=== PATIENT | female | born 1935 | race Caucasian/White ===

== ENCOUNTER 2019-09-11 08:40 | Inpatient (IN) ==
[2019-09-11] MEDS ORDERED: MoRPHine SULFATE 4 MG/ML 1 ML CARP\\VIAL IV PRN (08:53)
[2019-09-11] MEDS ORDERED: MoRPHine SULFATE 2 MG/ML CARP IV PRN ×3 (08:53→15:40)
[2019-09-11] MEDS ORDERED: SODIUM CHLORIDE 0.9% 500 ML IV STA (08:56)
[2019-09-11] MEDS ORDERED: FLUTICASONE/VILANTEROL 200/25MCG 14 PUFFS/INHALER INH ONE (09:00)
[2019-09-11] MEDS ORDERED: ONDANSETRON INJ 2 MG/ML 2 ML VIAL IV STA (09:08)
[2019-09-11 09:12] LABS: Basophils # (auto) 0.07 K/uL (0-0.2); Basophils % (auto) 0.5 %; Eosinophils # (auto) 0.84 K/uL (0-0.5); Eosinophils % (auto) 6.2 %; Hemoglobin 11.5 g/dL (12.0-16.0); Immature Granulocytes # (auto) 0.04 K/uL (0.00-0.02); Immature Granulocytes % (auto) 0.3 %; Lymphocytes # (auto) 3.86 K/uL (1.2-3.4); Lymphocytes % (auto) 28.3 %; Mean Corpuscular Hemoglobin 29.9 pg (25-34); Mean Corpuscular Hgb Conc 32.9 g/dL (32-36); Mean Corpuscular Volume 90.9 fL (80-100); Mean Platelet Volume 10.8 fL (7.4-10.4); Monocytes # (auto) 1.08 K/uL (0.11-0.59); Monocytes % (auto) 7.9 %; Neutrophils # (auto) 7.76 K/uL (1.4-6.5); Neutrophils % (auto) 56.8 %; Platelet Count 213 K/uL (130-400); RDW Coefficient of Variation 14.2 % (11.5-14.5); RDW Standard Deviation 47.1 fL (36.4-46.3); Red Blood Count 3.85 M/uL (4.2-5.4); White Blood Count 13.65 K/uL (4.8-10.8)
[2019-09-11 09:20] LABS: Partial Thromboplastin Ratio 0.8; Partial Thromboplastin Time 22.2 Seconds (21.0-31.0); Prothrombin Time 10.2 Seconds (9.0-12.0)
[2019-09-11 09:25] LABS: Appearance Urine Clear (Clear); Bacteria Urine Automated Negative (Negative); Bilirubin Urine Negative (Negative); Blood Urine Negative (Negative); Color Urine Yellow; Epithelial Cell Urine Auto >30 /lpf (0-5); Glucose Urine UA Negative (Negative); Ketones Urine Negative (Negative); Leukocyte Esterase Urine Trace (Negative); Nitrite Urine Negative (Negative); Protein Urine 1+ (Negative); RBC Urine Automated 0-4 /hpf (0-4); Specific Gravity Urine 1.017 (1.000-1.030); Urobilinogen Urine Negative (Negative); pH Urine 5.5 (4.5-7.5)
[2019-09-11 09:31] LABS: BUN Creatinine Ratio 15.9 (10-20); Calcium 9.7 mg/dl (8.5-10.1); Creatinine Clr Calc Pharmacy 25.9 ml/min; Est GFR (African American) 39.5; Est GFR (Non-African American) 34.1; Magnesium 2.7 mg/dl (1.8-2.4); Phosphorus 3.6 mg/dl (2.5-4.9); Potassium 4.1 mmol/L (3.5-5.1)
[2019-09-11 09:36] LABS: Mucus Urine Present (None Prsent)
--- NOTE | 2019-09-11 10:38 | XRay Report ---
SINGLE VIEW PELVIS; 2 VIEWS RIGHT HIP; 2 VIEWS RIGHT FEMUR CLINICAL HISTORY: Fall with right hip pain. FINDINGS: An AP view of the pelvis, AP and crosstable lateral views the right hip, and AP and crossta ble lateral views of the right femur are obtained. No prior studies are available for comparison at t he time of dictation. The skeletal structures are osteopenic. There is a minimally distracted fractur e of the superior right pubic ring. There is also likely a nondistracted fracture of the right inferi or pubic ring. The superior pubic ring fracture approaches the right acetabulum. The remainder of the bony pelvis appears intact. The hips are maintained. There is no radiographic evidence of right femo ral fracture. Mild degenerative joint space narrowing is present in both hips. There is degenerative sclerosis of the sacroiliac joints and pubic symphysis. The right knee joint is grossly maintained no ting chondrocalcinosis of the medial and lateral compartments. Lumbosacral spondylosis is partially i tristen. The overlying soft tissues are normal as visualized. There is advanced atherosclerotic calcifi cation of the femoral arteries. Phlebolith are noted in the pelvis. IMPRESSION: 1. There is a minimally distracted fracture of the right superior pubic ring which approaches the grace tabulum. 2. Suspect a nondistracted fracture of the right inferior pubic ring. 3. The hips appear intact. 4. There is no radiographic evidence of right femoral fracture. Electronically signed by: Charles Norwood M.D. 09/11/2019 10:36 AM
--- NOTE | 2019-09-11 10:38 | XRay Report ---
XR lumbar spine 2-3V CLINICAL HISTORY: 84 years-old Female presenting with fall pain. TECHNIQUE: Frontal and crosstable lateral views of the lumbar spine were obtained. COMPARISON: Correlation made to CT of the abdomen and pelvis performed the same day. FINDINGS: Normal lumbar lordosis. No significant scoliosis. Vertebral bodies maintain normal height and alignme nt. Intervertebral disc height loss noted to a mild degree at several levels. Vacuum disc phenomenon is also suggested at every level. Multilevel mild to moderate spondylitic spurring. There is also pos terior spondylitic spurring suggested at several levels. Osseous neural foraminal narrowing may be pr esent at L4-5 and L5-S1. No compression deformity. Atherosclerotic calcifications. Cholecystectomy cl ips. Nonobstructive bowel gas pattern. Osteopenia may be present. IMPRESSION: 1. No radiographic evidence of acute osseous injury. 2. Multilevel degenerative changes. 3. Multilevel spinal canal and neural foraminal narrowing may be present. ACT 112: Negative or not required by law. Electronically signed by: Ronan Metz M.D. 09/11/2019 10:36 AM
--- NOTE | 2019-09-11 10:39 | XRay Report ---
XR chest 1V not portable CLINICAL HISTORY: 84 years-old Female presenting with fall. TECHNIQUE: Portable supine AP view of the chest was obtained. COMPARISON: None. FINDINGS: Cardiomediastinal silhouette normal. No focal opacity. No large effusion or pneumothorax. Degenerativ e changes of the thoracic spine. Osteopenia suspected. Elevation of the humeral head suggests chronic rotator cuff tears. Cholecystectomy clips noted. IMPRESSION: 1. No acute cardiopulmonary disease. 2. Suspected chronic rotator cuff tears bilaterally. ACT 112: Negative or not required by law. Electronically signed by: Ronan Metz M.D. 09/11/2019 10:37 AM
--- NOTE | 2019-09-11 10:55 | CT Scan Report ---
CT abd pelvis wo con CLINICAL HISTORY: 84 years-old Female presenting with fall, pelvic fx, back pain. TECHNIQUE: Multidetector CT of the abdomen and pelvis was performed without the use of intravenous co ntrast. IV contrast: None. One or more dose lowering techniques were used consistent with the princip les of ALA (as low as reasonably achievable), including automatic exposure control, mA or kV adjust ment to individual patient size, and/or use of iterative reconstruction. COMPARISON: None. CT DOSE (mGy.cm): The estimated cumulative dose is 406.38 mGycm. FINDINGS: Content Designer topogram: Cholecystectomy clips. Lung bases: Normal heart size. Coronary artery calcification. No pericardial or pleural effusion. Min imal dependent changes likely atelectasis. Liver: Normal morphology. Normal density. Biliary: No gross biliary ductal dilatation allowing for noncontrast technique. Gallbladder surgicall y absent. Pancreas: Mild parenchymal atrophy. Spleen: Normal noncontrast appearance. Adrenal glands: Normal noncontrast appearance. Kidneys and ureters: Punctate bilateral nephrolithiasis as well as renovascular calcification. Normal noncontrast of the kidneys otherwise. No hydronephrosis. Ureters nondistended. Bladder: Decompressed with Piper catheter. Pelvic organs: Uterus surgically absent. Bowel: Moderate stool burden in the rectum with a milder stool burden in the remainder of the colon. Diverticulosis of the proximal to mid sigmoid and distal descending colon without wall thickening or pericolonic inflammatory change. The appendix is normal. No bowel obstruction. Peritoneal cavity: No free fluid or intraperitoneal gas. Lymph nodes: No gross lymphadenopathy allowing for noncontrast technique. Vasculature: Atherosclerosis of the normal caliber abdominal aorta. Abdominal wall: Focal infiltration of the right lower quadrant intra-abdominal wall and to a lesser e xtent in the left lower quadrant. Musculoskeletal: Degenerative changes of the spine. Extensive endplate concavities noted at L2 and L5 . These appear to be on a degenerative basis and/or chronic. Possible nondisplaced fracture of the le ft anterior seventh rib degenerative changes of the hips. Acute segmental fracture of the right infer ior pubic ramus. Periacetabular fracture of the right superior pubic ramus. Femoral necks are intact. IMPRESSION: 1. Acute fractures of the right superior and inferior pubic rami. 2. Suspected nondisplaced acute fracture of the left anterior seventh rib. 3. Chronic deformities in the lumbar spine without convincing evidence of an acute fracture. 4. Lower quadrant anterior abdominal wall subcutaneous fat contusions. No focal hematoma. 5. No other evidence of acute intra-abdominal injury. 6. Additional incidental findings as above. ACT 112: Negative or not required by law. Electronically signed by: Ronan Metz M.D. 09/11/2019 10:53 AM
[2019-09-11] MEDS ORDERED: HYDROmorphone INJ 0.5 MG/0.5 ML SYR IV PRN ×2 (11:10)
--- NOTE | 2019-09-11 11:45 | Electrocardiogram Report ---
Test Reason : Blood Pressure : / mmHG Vent. Rate : 082 BPM Atrial Rate : 082 BPM P-R Int : 192 ms QRS Dur : 092 ms QT Int : 412 ms P-R-T Axes : 057 006 014 degrees QTc Int : 481 ms Sinus rhythm with frequent Premature ventricular complexes Otherwise normal ECG When compared with ECG of 20-NOV-2012 15:08, Premature ventricular complexes are now Present Vent. rate has increased BY 29 BPM Confirmed by Tarik Houston ([id number]) on 09/11/2019 11:44:58 AM Referred By: REFERRED SELF Confirmed By:Tarik Houston
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
[2019-09-11] MEDS ORDERED: CARBOHYDRATES FOR HYPOGLYCEMIA PO PRN (13:56)
[2019-09-11] MEDS ORDERED: ACETAMINOPHEN 325 MG TAB PO PRN ×2 (13:56→14:24)
[2019-09-11] MEDS ORDERED: ALBUTEROL HFA 8 GM INHALER INH PRN (13:56)
[2019-09-11] MEDS ORDERED: GLUCAGON FOR INJ 1 MG VIAL SQ PRN (13:56)
[2019-09-11] MEDS ORDERED: DEXTROSE 50% 50 ML SYRINGE IV PRN (13:56)
[2019-09-11] MEDS ORDERED: NON-FORMULARY MEDICATION (Magnesium Oxide 400 MG) PO SCH (13:56)
[2019-09-11] MEDS ORDERED: GLUCOSE 40% GEL 15 GM TUBE PO PRN (13:56)
[2019-09-11] MEDS ORDERED: ONDANSETRON INJ 2 MG/ML 2 ML VIAL IV PRN (13:56)
[2019-09-11] MEDS ORDERED: GLUCOSE 10 TABS/TUBE PO PRN (13:56)
[2019-09-11] MEDS ORDERED: POLYETHYLENE (MIRALAX) 17 GM PACK PO PRN (13:56)
[2019-09-11] MEDS ORDERED: SODIUM CHLORIDE 0.9% 1000ML 1,000 ML IV SCH (14:15)
[2019-09-11] MEDS: METOPROLOL SUCC 25MG EXT REL TAB PO SCH (14:26)
[2019-09-11] MEDS ORDERED: ACETAMINOPHEN 325 MG TAB PO SCH (14:30)
[2019-09-11] MEDS: GABAPENTIN 300 MG CAP PO SCH ×2 (15:08→21:13)
[2019-09-11] MEDS: SENNA 8.6 MG TAB PO SCH (15:09)
[2019-09-11] MEDS ORDERED: OXYCODONE HCL IR 5 MG TAB (IMMEDIATE RELEASE) PO PRN (15:39)
--- NOTE | 2019-09-11 15:53 | Orthopedic Consultation ---
Date of Consultation September 11, 2019 Assessment & Plan (1) Closed pelvic fracture: Plain x-rays and CT scan have been reviewed by myself and Dr. Sol. A portion of the superior pubic ramus fracture extends towards the acetabulum. No surgery will be needed for this at this time. She will need to remain toe-touch weightbearing on the right lower extremity. We discussed that she would need to be toe-touch weightbearing for at least 4 to 6 weeks and depending on repeat films, Dr. Sol may let her begin putting more weight on the right lower extremity at that time. Plan to follow-up with Dr. Sol in the next 2 to 3 weeks for repeat films. She can be started on PT and OT protocols. Depending how she progresses with her pain control and PT, she may need a rehab type stay before going home. Thank you for this consult. History of Present Illness Reason for Consultation: Right superior inferior pubic ramus fracture Attending Physician: Raheem Castellano MD History of Present Illness Patient is an 84-year-old white female who states that she was walking down a flight of stairs today at her home and missed the last step. She lost her balance and fell onto her right side pretty hard. She denies loss of consciousness or head. She states that she did not have any shortness of breath, chest pain, lightheadedness prior to the fall or after. She had immediate pain in her right hip and groin and was unable to ambulate. She was brought to the emergency room here at [facility] and was seen by the staff. X-rays were taken and was found that she had a superior inferior pubic ramus fracture and we were asked to evaluate her. Allergies Allergy/AdvReac Type Severity Reaction Status Date / Time diazepam Allergy . Verified 09/11/19 10:24 Home Medications Home Medications Medication Instructions Recorded Confirmed Type albuterol sulfate [Proventil HFA] 2 puff INHALATION 6XD PRN 09/11/19 09/11/19 History amlodipine 2.5 mg PO DAILY 09/11/19 09/11/19 History atorvastatin 40 mg PO QPM 09/11/19 09/11/19 History famotidine 20 mg PO DAILY 09/11/19 09/11/19 History ferrous sulfate 325 mg PO DAILY 09/11/19 09/11/19 History fluticasone propion-salmeterol 1 inh INHALATION BID 09/11/19 09/11/19 History [Wixela Inhub] gabapentin 300 mg PO DIRECTED 09/11/19 09/11/19 History insulin detemir U-100 [Levemir 19 unit SUBCUT HS 09/11/19 09/11/19 History FlexTouch U-100 Insuln] lisinopril 5 mg PO DAILY 09/11/19 09/11/19 History magnesium oxide 400 mg PO DAILY 09/11/19 09/11/19 History metoprolol succinate 12.5 mg PO DAILY 09/11/19 09/11/19 History montelukast 10 mg PO DAILY 09/11/19 09/11/19 History nitroglycerin 0.4 mg SUBLINGUAL DIRECTED PRN 09/11/19 09/11/19 History semaglutide [Ozempic] 0.5 mg SUBCUT WK 09/11/19 09/11/19 History Patient History Medical History Chronic anemia CKD (chronic kidney disease), stage III COPD (chronic obstructive pulmonary disease) Diabetes mellitus, type II GERD (gastroesophageal reflux disease) History of coronary artery disease History of humerus fracture HLD (hyperlipidemia) HTN (hypertension) Inflammatory polyarthritis Macular degeneration Osteoporosis Surgical History History of cardiac cath 2006- bare metal stent [facility] History of cataract surgery History of cholecystectomy History of hysterectomy Family History Other Heart disease Social History Preferred Language: Armenian Communication Ability: Effective 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 No recent fevers or chills, flu or cold-like symptoms. No increased cough or sputum production. No shortness of breath at rest. Denies chest pain, chest pressure. No unusual abdominal pain, nausea, vomiting, diarrhea. Denies melena, hematochezia. Denies history of hematuria ,pyuria, dysuria. No history of vertigo or spinning sensations. Denies history of CVA, TIA, migraine headache Physical Exam Physical Exam: Patient is an 84-year-old white female who appears her stated age. She is awake and alert and pleasant and cooperative. No acute distress. Focusing the exam on the right lower extremity and pelvis, her right hip is mildly flexed and the leg is externally rotated mildly and is on a pillow for comfort. She is some mild pain on palpation over the lateral hip from where she had fallen. Pelvic rock does not cause her any overt pain and feels stable. He has some mild pain with internal and external rotation of the hip. Increased pain with flexion extension and abduction. She denies any pain in the right knee and has no overt effusion noted. Her motion appears to be within normal limits. Right ankle is essentially benign and is nontender and range of motion is within normal limits. Left lower extremity is essentially benign at this time and within normal limits for range of motion of the left hip knee and ankle. Upper extremities are unaffected at this time. She has no increased pain in the shoulders elbows or wrists. She states that she has some general aches and pains of the upper extremities which have not been exacerbated. Distal pulses are equal bilaterally of the upper lower extremities. She denies any cervical, thoracic, low back pain at this time. There is no gross motor or sensory loss seen at this time. Results & Data Vital Signs (Past 12 Hours) Vital Signs Temp Pulse Pulse Pulse Resp BP BP 09/11/19 15:51 36.8 C 85 17 118/72 09/11/19 13:45 37.6 C H 85 16 103/48 L 09/11/19 13:14 36.5 C 90 22 99/50 L 09/11/19 13:00 90 22 99/50 L 09/11/19 12:45 86 19 09/11/19 12:31 85 24 99/47 L 09/11/19 12:30 87 20 09/11/19 12:16 92 H 15 99/42 L 09/11/19 12:15 91 H 19 09/11/19 12:02 87 17 09/11/19 12:01 88 18 99/42 L 09/11/19 12:00 91 H 19 09/11/19 11:45 92 H 20 114/59 L 09/11/19 11:33 92 H 20 09/11/19 11:32 91 H 20 114/59 L 09/11/19 11:30 94 H 16 09/11/19 11:15 88 14 09/11/19 11:00 87 20 09/11/19 10:45 86 18 09/11/19 10:43 83 86 16 118/41 L 09/11/19 10:41 86 17 09/11/19 10:01 88 09/11/19 10:00 88 14 09/11/19 09:45 82 15 09/11/19 09:40 86 16 09/11/19 09:38 82 18 116/45 L 09/11/19 09:30 82 18 09/11/19 09:15 87 16 09/11/19 09:11 84 20 138/52 L 09/11/19 09:00 83 18 09/11/19 08:55 82 16 09/11/19 08:49 84 21 138/52 L 09/11/19 08:44 36.5 C 85 16 138/52 L BP Pulse Ox 09/11/19 15:51 99 09/11/19 13:45 96/57 L 93 09/11/19 13:14 95 09/11/19 13:00 95 09/11/19 12:45 99 09/11/19 12:31 98 09/11/19 12:30 93 09/11/19 12:16 09/11/19 12:15 09/11/19 12:02 09/11/19 12:01 96 09/11/19 12:00 09/11/19 11:45 97 09/11/19 11:33 97 09/11/19 11:32 09/11/19 11:30 09/11/19 11:15 94 09/11/19 11:00 96 09/11/19 10:45 09/11/19 10:43 118/41 L 100 09/11/19 10:41 09/11/19 10:01 09/11/19 10:00 09/11/19 09:45 96 09/11/19 09:40 116/45 L 97 09/11/19 09:38 90 09/11/19 09:30 91 09/11/19 09:15 09/11/19 09:11 09/11/19 09:00 09/11/19 08:55 95 09/11/19 08:49 09/11/19 08:44 93 Diagnostic Findings Patient: GUERO PEARL Date: 09/11/19 MR#: [id number]: [address] [facility] Acct ID:[id number]: Date: 1935[facility] Zip: [place] [address] Age: 84Location: ED Sex: F Room/Bed: Att Phy:Diagnosis: FALL Jennifer Phy: Kathy Khan, MDService Date: 09/11/19 Fam Phy:Interpreting Phy: Charles Norwood MD Admit Phy: Ordering Phy: Chepe Kat M.D. cc: ~ SINGLE VIEW PELVIS; 2 VIEWS RIGHT HIP; 2 VIEWS RIGHT FEMUR CLINICAL HISTORY: Fall with right hip pain. FINDINGS: An AP view of the pelvis, AP and crosstable lateral views the right hip, and AP and crosstable lateral views of the right femur are obtained. No prior studies are available for comparison at the time of dictation. The skeletal structures are osteopenic. There is a minimally distracted fracture of the superior right pubic ring. There is also likely a nondistracted fracture of the right inferior pubic ring. The superior pubic ring fracture approaches the right acetabulum. The remainder of the bony pelvis appears intact. The hips are maintained. There is no radiographic evidence of right femoral fracture. Mild degenerative joint space narrowing is present in both hips. There is degenerative sclerosis of the sacroiliac joints and pubic symphysis. The right knee joint is grossly maintained noting chondrocalcinosis of the medial and lateral compartments. Lumbosacral spondylosis is partially imaged. The overlying soft tissues are normal as visualized. There is advanced atherosclerotic calcification of the femoral arteries. Phlebolith are noted in the pelvis. IMPRESSION: 1. There is a minimally distracted fracture of the right superior pubic ring which approaches the acetabulum. 2. Suspect a nondistracted fracture of the right inferior pubic ring. 3. The hips appear intact. 4. There is no radiographic evidence of right femoral fracture. CT abd pelvis wo con CLINICAL HISTORY: 84 years-old Female presenting with fall, pelvic fx, back pain. TECHNIQUE: Multidetector CT of the abdomen and pelvis was performed without the use of intravenous contrast. IV contrast: None. One or more dose lowering techniques were used consistent with the principles of ALARA (as low as reasonably achievable), including automatic exposure control, mA or kV adjustment to individual patient size, and/or use of iterative reconstruction. COMPARISON: None. CT DOSE (mGy.cm): The estimated cumulative dose is 406.38 mGycm. FINDINGS: Swing Manager topogram: Cholecystectomy clips. Lung bases: Normal heart size. Coronary artery calcification. No pericardial or pleural effusion. Minimal dependent changes likely atelectasis. Liver: Normal morphology. Normal density. Biliary: No gross biliary ductal dilatation allowing for noncontrast technique. Gallbladder surgically absent. Pancreas: Mild parenchymal atrophy. Spleen: Normal noncontrast appearance. Adrenal glands: Normal noncontrast appearance. Kidneys and ureters: Punctate bilateral nephrolithiasis as well as renovascular calcification. Normal noncontrast of the kidneys otherwise. No hydronephrosis. Ureters nondistended. Bladder: Decompressed with Piper catheter. Pelvic organs: Uterus surgically absent. Bowel: Moderate stool burden in the rectum with a milder stool burden in the remainder of the colon. Diverticulosis of the proximal to mid sigmoid and distal descending colon without wall thickening or pericolonic inflammatory change. The appendix is normal. No bowel obstruction. Peritoneal cavity: No free fluid or intraperitoneal gas. Lymph nodes: No gross lymphadenopathy allowing for noncontrast technique. Vasculature: Atherosclerosis of the normal caliber abdominal aorta. Abdominal wall: Focal infiltration of the right lower quadrant intra-abdominal wall and to a lesser extent in the left lower quadrant. Musculoskeletal: Degenerative changes of the spine. Extensive endplate concavities noted at L2 and L5. These appear to be on a degenerative basis and/or chronic. Possible nondisplaced fracture of the left anterior seventh rib degenerative changes of the hips. Acute segmental fracture of the right inferior pubic ramus. Periacetabular fracture of the right superior pubic ramus. Femoral necks are intact. IMPRESSION: 1. Acute fractures of the right superior and inferior pubic rami. 2. Suspected nondisplaced acute fracture of the left anterior seventh rib. 3. Chronic deformities in the lumbar spine without convincing evidence of an acute fracture. 4. Lower quadrant anterior abdominal wall subcutaneous fat contusions. No focal hematoma. 5. No other evidence of acute intra-abdominal injury. 6. Additional incidental findings as above. (1) Closed pelvic fracture Encounter type: initial encounter Fracture alignment: nondisplaced Pelvic bone location: unspecified part of pelvis Qualified Code(s): S32.9XXA - Fracture of unspecified parts of lumbosacral spine and pelvis, initial encounter for closed fracture
[2019-09-11] MEDS: OXYCODONE HCL IR 5 MG TAB (IMMEDIATE RELEASE) PO PRN ×2 (16:05→21:09)
--- NOTE | 2019-09-11 16:48 | Emergency Department Note ---
Entered by Lashonda Irizarry acting as a scribe for History of Present Illness General Chief complaint: Fall Time Seen by Provider: 09/11/19 08:46 Source: patient Mode of arrival: EMS History of Present Illness Onset (ago): hour(s) less than 1 Location: head (Fall) Pain Consistency: + other (episode) Quality: + other (fall) Exacerbated By: + movement Associated symptoms: + other (Positive right hip pain, low back pain. Negative neck pain, abdomnial pain, diarrhea. ); no cough, no fever/chills, no nausea/vomiting and no syncope Treatments prior to arrival: other (Fentanyl, Zofran) The patient is an 84 year old female presenting to the Emergency Department via EMS complaining of an episode of a fall starting less than 1 hour ago. The patient reports that she slipped while walking down stairs, ultimately falling down 1 step. She states that she fell on her right side. She explains that her right hip is severely painful and that moving around worsens her pain. She notes that her lower back also hurts. 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 The patient reports that she lives in her home but isnt alone there. She denies hitting her head, neck pain, abdominal pain, syncope, fevers, chills, nausea, vomiting, diarrhea and use of blood thinners. Home Medications Home Medications Medication Instructions Recorded Confirmed Type albuterol sulfate [Proventil HFA] 2 puff INHALATION 6XD PRN 09/11/19 09/11/19 History amlodipine 2.5 mg PO DAILY 09/11/19 09/11/19 History atorvastatin 40 mg PO QPM 09/11/19 09/11/19 History famotidine 20 mg PO DAILY 09/11/19 09/11/19 History ferrous sulfate 325 mg PO DAILY 09/11/19 09/11/19 History fluticasone propion-salmeterol 1 inh INHALATION BID 09/11/19 09/11/19 History [Wixela Inhub] gabapentin 300 mg PO DIRECTED 09/11/19 09/11/19 History insulin detemir U-100 [Levemir 19 unit SUBCUT HS 09/11/19 09/11/19 History FlexTouch U-100 Insuln] lisinopril 5 mg PO DAILY 09/11/19 09/11/19 History magnesium oxide 400 mg PO DAILY 09/11/19 09/11/19 History metoprolol succinate 12.5 mg PO DAILY 09/11/19 09/11/19 History montelukast 10 mg PO DAILY 09/11/19 09/11/19 History nitroglycerin 0.4 mg SUBLINGUAL DIRECTED PRN 09/11/19 09/11/19 History semaglutide [Ozempic] 0.5 mg SUBCUT WK 09/11/19 09/11/19 History Allergies Allergy/AdvReac Type Severity Reaction Status Date / Time diazepam Allergy . Verified 09/11/19 10:24 Past Med/Surg History Medical History Chronic anemia CKD (chronic kidney disease), stage III COPD (chronic obstructive pulmonary disease) Diabetes mellitus, type II GERD (gastroesophageal reflux disease) History of coronary artery disease History of humerus fracture HLD (hyperlipidemia) HTN (hypertension) Inflammatory polyarthritis Macular degeneration Osteoporosis Surgical History History of cardiac cath 2006- bare metal stent [facility] History of cataract surgery History of cholecystectomy History of hysterectomy Family History Other Heart disease Social History Preferred Language: Sami Communication Ability: Effective Quoter Required: No Beliefs That Will Affect Care: None Current Living Situation: Family Current Living Situation Comment: lives with son Other Information That Helps Us Care for You: No Feels Safe at Home: Yes Safety Concerns: Feels Safe At This Time Smoking Status: Never smoker Hx Alcohol Use: No Hx Substance Use: No Review of Systems See HPI for pertinent positives & negatives. and A total of 10 systems reviewed and were otherwise negative Physical Exam Vital Signs Vital Signs - 24 hr 09/11/19 08:44 09/11/19 08:49 09/11/19 08:55 Temperature 36.5 C Temperature Source Oral Pulse Rate 85 84 82 Pulse Rate [Apical] Respiratory Rate 16 21 16 Blood Pressure 138/52 L 138/52 L Blood Pressure [Right Arm] Blood Pressure Mean 80 76 Blood Pressure Mean [Right Arm] Pulse Oximetry 93 95 Oxygen Delivery Method Room Air Sepsis Recent Fever Within 48 Hours No Sepsis New/Unexplained Change in Mental Status No Sepsis Action Taken by Nursing No Action Required 09/11/19 09:00 09/11/19 09:11 09/11/19 09:15 Temperature Temperature Source Pulse Rate 83 84 87 Pulse Rate [Apical] Respiratory Rate 18 20 16 Blood Pressure 138/52 L Blood Pressure [Right Arm] Blood Pressure Mean 76 Blood Pressure Mean [Right Arm] Pulse Oximetry Oxygen Delivery Method Sepsis Recent Fever Within 48 Hours Sepsis New/Unexplained Change in Mental Status Sepsis Action Taken by Nursing 09/11/19 09:30 09/11/19 09:38 09/11/19 09:40 Temperature Temperature Source Pulse Rate 82 82 Pulse Rate [Apical] 86 Respiratory Rate 18 18 16 Blood Pressure 116/45 L Blood Pressure [Right Arm] 116/45 L Blood Pressure Mean 75 Blood Pressure Mean [Right Arm] 68 Pulse Oximetry 91 90 97 Oxygen Delivery Method Room Air Sepsis Recent Fever Within 48 Hours Sepsis New/Unexplained Change in Mental Status Sepsis Action Taken by Nursing 09/11/19 09:45 09/11/19 10:00 09/11/19 10:01 Temperature Temperature Source Pulse Rate 82 88 88 Pulse Rate [Apical] Respiratory Rate 15 14 Blood Pressure Blood Pressure [Right Arm] Blood Pressure Mean 67 Blood Pressure Mean [Right Arm] Pulse Oximetry 96 Oxygen Delivery Method Sepsis Recent Fever Within 48 Hours Sepsis New/Unexplained Change in Mental Status Sepsis Action Taken by Nursing 09/11/19 10:41 09/11/19 10:43 09/11/19 10:45 Temperature Temperature Source Pulse Rate 86 83 86 Pulse Rate [Apical] 86 Respiratory Rate 17 16 18 Blood Pressure 118/41 L Blood Pressure [Right Arm] 118/41 L Blood Pressure Mean 53 Blood Pressure Mean [Right Arm] 66 Pulse Oximetry 100 Oxygen Delivery Method Room Air Sepsis Recent Fever Within 48 Hours Sepsis New/Unexplained Change in Mental Status Sepsis Action Taken by Nursing 09/11/19 11:00 09/11/19 11:15 09/11/19 11:30 Temperature Temperature Source Pulse Rate 87 88 94 H Pulse Rate [Apical] Respiratory Rate 20 14 16 Blood Pressure Blood Pressure [Right Arm] Blood Pressure Mean Blood Pressure Mean [Right Arm] Pulse Oximetry 96 94 Oxygen Delivery Method Sepsis Recent Fever Within 48 Hours Sepsis New/Unexplained Change in Mental Status Sepsis Action Taken by Nursing 09/11/19 11:32 09/11/19 11:33 09/11/19 11:45 Temperature Temperature Source Pulse Rate 91 H 92 H 92 H Pulse Rate [Apical] Respiratory Rate 20 20 20 Blood Pressure 114/59 L 114/59 L Blood Pressure [Right Arm] Blood Pressure Mean 75 77 Blood Pressure Mean [Right Arm] Pulse Oximetry 97 97 Oxygen Delivery Method Sepsis Recent Fever Within 48 Hours Sepsis New/Unexplained Change in Mental Status Sepsis Action Taken by Nursing 09/11/19 12:00 09/11/19 12:01 09/11/19 12:02 Temperature Temperature Source Pulse Rate 91 H 88 87 Pulse Rate [Apical] Respiratory Rate 19 18 17 Blood Pressure 99/42 L Blood Pressure [Right Arm] Blood Pressure Mean 61 Blood Pressure Mean [Right Arm] Pulse Oximetry 96 Oxygen Delivery Method Sepsis Recent Fever Within 48 Hours Sepsis New/Unexplained Change in Mental Status Sepsis Action Taken by Nursing GENERAL: Patient is uncomfortable appearing. Awake, alert, in no distress HENT: Normocephalic, atraumatic. Oropharynx with dry mucous membranes and otherwise unremarkable. EYES: Normal conjunctiva. Sclera non-icteric. NECK: Supple. No nuchal rigidity. FROM. No JVD. RESPIRATORY: CTAB. CARDIAC: Regular rate, normal rhythm. Extremities warm and well perfused. Pulses equal. ABDOMEN: Soft, non-distended. No tenderness to palpation. No rebound or guarding. No masses. RECTAL: Deferred. MUSCULOSKELETAL: Mild tenderness of right inguinal and lateral hip. ROM limited secondary to pain. Distal PMS intact. Chest examination reveals no tenderness. The back is symmetrical on inspection without obvious abnormality. There is no CVA tenderness to palpation. No joint edema. LOWER EXTREMITIES: Calves are equal size bilaterally and non-tender. No edema. No discoloration. NEURO: Normal sensorium. No sensory or motor deficits noted. SKIN: No rash or jaundice noted. Course Course 0848: The patient was evaluated in room B6, and a complete history and physical examination were performed. 1100: I reevaluated the patient at this time. I updated her on her imaging studies. 1108: I discussed the patients case with Mirna Ramirez PA-C. Dr. Gray Aleman hospitalist will evaluate the patient for further management. 1118: I discussed the patients case with Dr. Hayward [place] orthopedic resident who will discuss his case with his attending and update me. He reports that he doesnt think the patients injury is operable. 1132: I spoke with Dr. Hayward who reviewed images with Dr. Sol and findings ar e nonoperative. Toe-touch weightbearing. They will be available for inpatient consultation. Administered Medications Gabapentin (Neurontin) 300 mg PO BID@0900,1400 [facility] Stop: 10/11/19 14:29 Last Admin: 09/11/19 15:08 Dose: 300 mg Documented by: [id number] Sodium Chloride (Nss 1000ml) 1,000 mls @ 80 mls/hr IV .[id number] [facility] Stop: 09/12/19 02:44 Last Admin: 09/11/19 14:43 Dose: 80 mls/hr Documented by: [id number] Metoprolol Succinate (Toprol Xl) 12.5 mg PO DAILY [facility] Stop: 10/11/19 12:02 Last Admin: 09/11/19 14:26 Dose: Not Given Documented by: [id number] Oxycodone HCl (Roxicodone Immediate Rel) 5 mg PO Q6H PRN PRN Reason: Moderate Pain Stop: 09/25/19 13:55 Last Admin: 09/11/19 16:05 Dose: 5 mg Documented by: [id number] Sennosides (Senokot) 8.6 mg PO QAM [facility] Stop: 10/11/19 14:29 Last Admin: 09/11/19 15:09 Dose: 8.6 mg Documented by: [id number] Discontinued Medications Acetaminophen (Tylenol) 650 mg PO Q8 [facility] Stop: 10/11/19 14:29 Last Admin: 09/11/19 14:39 Dose: 650 mg Documented by: [id number] Sodium Chloride (Nss) 500 mls @ 125 mls/hr IV .Q4H STA Stop: 09/11/19 12:55 Last Infusion: 09/11/19 14:44 Dose: 0 mls/hr Documented by: [id number] Admin: 09/11/19 09:14 Dose: 125 mls/hr Documented by: [id number] Morphine Sulfate (Morphine Sulfate) 4 mg IV Q1H PRN PRN Reason: Severe Pain (Rating 7,8,9,10) Stop: 09/25/19 08:52 Last Admin: 09/11/19 09:14 Dose: 4 mg Documented by: [id number] Ondansetron HCl (Zofran) 4 mg IV NOW STA Stop: 09/11/19 09:09 Last Admin: 09/11/19 09:15 Dose: 4 mg Documented by: [id number] Medical Decision Making Differential Diagnosis Differential diagnoses include major intracranial, cervical, spinal, thoracic, abdominal, pelvic and neurologic injury. Fracture, contusion, sprain, strain, laceration, abrasions included as well. Medical Records Attestation: I reviewed the patient's medical records. Home Medications Current Medication List: was personally reviewed by me Laboratory Data Attestation: I reviewed the patient's lab results. Result diagrams: 09/11/19 08:50 09/11/19 08:50 Lab Results 09/11/19 09/11/19 09/11/19 Range/Units 08:50 08:50 08:50 WBC 13.65 H (4.8-10.8) K/uL RBC 3.85 L (4.2-5.4) M/uL Hgb 11.5 L (12.0-16.0) g/dL Hct 35.0 L (37-47) % MCV 90.9 (80-100) fL MCH 29.9 (25-34) pg MCHC 32.9 (32-36) g/dL RDW Std Deviation 47.1 H (36.4-46.3) fL RDW Coeff of Pascale 14.2 (11.5-14.5) % Plt Count 213 (130-400) K/uL MPV 10.8 H (7.4-10.4) fL Immature Gran % (Auto) 0.3 % Neut % (Auto) 56.8 % Lymph % (Auto) 28.3 % [place] % (Auto) 7.9 % Eos % (Auto) 6.2 % Baso % (Auto) 0.5 % Immature Gran # (Auto) 0.04 H (0.00-0.02) K/uL Neut # (Auto) 7.76 H (1.4-6.5) K/uL Lymph # (Auto) 3.86 H (1.2-3.4) K/uL [place] # (Auto) 1.08 H (0.11-0.59) K/uL Eos # (Auto) 0.84 H (0-0.5) K/uL Baso # (Auto) 0.07 (0-0.2) K/uL PT 10.2 (9.0-12.0) Seconds INR 1.0 (0.9-1.1) APTT 22.2 (21.0-31.0) Seconds PTT Ratio 0.8 Sodium 138 (136-145) mmol/L Potassium 4.1 (3.5-5.1) mmol/L Chloride 106 (98-107) mmol/L Carbon Dioxide 28 (21-32) mmol/L Anion Gap 5.0 (3-11) BUN 22 H (7-18) mg/dl Creatinine 1.41 H (0.6-1.2) mg/dl Est Cr Clr Drug Dosing 25.9 ml/min Est GFR ( Amer) 39.5 Est GFR (Non-Af Amer) 34.1 BUN/Creatinine Ratio 15.9 (10-20) Glucose 125 H (70-99) mg/dl Calcium 9.7 (8.5-10.1) mg/dl Phosphorus 3.6 (2.5-4.9) mg/dl Magnesium 2.7 H (1.8-2.4) mg/dl Urine Color Urine Appearance (Clear) Urine pH (4.5-7.5) Ur Specific Wagoner (1.000-1.030) Urine Protein (Negative) Urine Glucose (UA) (Negative) Urine Ketones (Negative) Urine Blood (Negative) Urine Nitrite (Negative) Urine Bilirubin (Negative) Urine Urobilinogen (Negative) Ur Leukocyte Esterase (Negative) Urine WBC (Auto) (0-5) /hpf Urine RBC (Auto) (0-4) /hpf U Hyaline Cast (Auto) (0-5) /lpf U Epithel Cells (Auto) (0-5) /lpf Urine Bacteria (Auto) (Negative) Ur Renal Epithelial Cell Urine Mucus (None Prsent) Blood Type Antibody Screen 09/11/19 09/11/19 Range/Units 09:00 09:22 WBC (4.8-10.8) K/uL RBC (4.2-5.4) M/uL Hgb (12.0-16.0) g/dL Hct (37-47) % MCV (80-100) fL MCH (25-34) pg MCHC (32-36) g/dL RDW Std Deviation (36.4-46.3) fL RDW Coeff of Pascale (11.5-14.5) % Plt Count (130-400) K/uL MPV (7.4-10.4) fL Immature Gran % (Auto) % Neut % (Auto) % Lymph % (Auto) % [place] % (Auto) % Eos % (Auto) % Baso % (Auto) % Immature Gran # (Auto) (0.00-0.02) K/uL Neut # (Auto) (1.4-6.5) K/uL Lymph # (Auto) (1.2-3.4) K/uL [place] # (Auto) (0.11-0.59) K/uL Eos # (Auto) (0-0.5) K/uL Baso # (Auto) (0-0.2) K/uL PT (9.0-12.0) Seconds INR (0.9-1.1) APTT (21.0-31.0) Seconds PTT Ratio Sodium (136-145) mmol/L Potassium (3.5-5.1) mmol/L Chloride (98-107) mmol/L Carbon Dioxide (21-32) mmol/L Anion Gap (3-11) BUN (7-18) mg/dl Creatinine (0.6-1.2) mg/dl Est Cr Clr Drug Dosing ml/min Est GFR ( Amer) Est GFR (Non-Af Amer) BUN/Creatinine Ratio (10-20) Glucose (70-99) mg/dl Calcium (8.5-10.1) mg/dl Phosphorus (2.5-4.9) mg/dl Magnesium (1.8-2.4) mg/dl Urine Color Yellow Urine Appearance Clear (Clear) Urine pH 5.5 (4.5-7.5) Ur Specific Wagoner 1.017 (1.000-1.030) Urine Protein 1+ H (Negative) Urine Glucose (UA) Negative (Negative) Urine Ketones Negative (Negative) Urine Blood Negative (Negative) Urine Nitrite Negative (Negative) Urine Bilirubin Negative (Negative) Urine Urobilinogen Negative (Negative) Ur Leukocyte Esterase Trace H (Negative) Urine WBC (Auto) 1-5 (0-5) /hpf Urine RBC (Auto) 0-4 (0-4) /hpf U Hyaline Cast (Auto) 5-10 H (0-5) /lpf U Epithel Cells (Auto) >30 H (0-5) /lpf Urine Bacteria (Auto) Negative (Negative) Ur Renal Epithelial Cell Not Reportable Urine Mucus Present A (None Prsent) Blood Type O Positive Antibody Screen NEGATIVE Imaging Data Radiologist's Impression: Radiology results as stated below per my review and the radiologist's interpretation: CT abd pelvis wo con CLINICAL HISTORY: 84 years-old Female presenting with fall, pelvic fx, back pain. TECHNIQUE: Multidetector CT of the abdomen and pelvis was performed without the use of intravenous contrast. IV contrast: None. One or more dose lowering techniques were used consistent with the principles of ALARA (as low as reasona art achievable), including automatic exposure control, mA or kV adjustment to individual patient size, and/or use of iterative reconstruction. COMPARISON: None. CT DOSE (mGy.cm): The estimated cumulative dose is 406.38 mGycm. 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 Lung bases: Normal heart size. Coronary artery calcification. No pericardial or pleural effusion. Minimal dependent changes likely atelectasis. Liver: Normal morphology. Normal density. Biliary: No gross biliary ductal dilatation allowing for noncontrast technique. Gallbladder surgically absent. Pancreas: Mild parenchymal atrophy. Spleen: Normal noncontrast appearance. Adrenal glands: Normal noncontrast appearance. Kidneys and ureters: Punctate bilateral nephrolithiasis as well as renovascular calcification. Normal noncontrast of the kidneys otherwise. No hydronephrosis. Ureters nondistended. Bladder: Decompressed with Piper catheter. Pelvic organs: Uterus surgically absent. Bowel: Moderate stool burden in the rectum with a milder stool burden in the remainder of the colon. Diverticulosis of the proximal to mid sigmoid and distal descending colon without wall thickening or pericolonic inflammatory change. The appendix is normal. No bowel obstruction. Peritoneal cavity: No free fluid or intraperitoneal gas. Lymph nodes: No gross lymphadenopathy allowing for noncontrast technique. Vasculature: Atherosclerosis of the normal caliber abdominal aorta. Abdominal wall: Focal infiltration of the right lower quadrant intra-abdominal wall and to a lesser extent in the left lower quadrant. Musculoskeletal: Degenerative changes of the spine. Extensive endplate concavities noted at L2 and L5. These appear to be on a degenerative basis and/or chronic. Possible nondisplaced fracture of the left anterior seventh rib degenerative changes of the hips. Acute segmental fracture of the right inferior pubic ramus. Periacetabular fracture of the right superior pubic ramus. Femoral necks are intact. IMPRESSION: 1. Acute fractures of the right superior and inferior pubic rami. 2. Suspected nondisplaced acute fracture of the left anterior seventh rib. 3. Chronic deformities in the lumbar spine without convincing evidence of an acute fracture. 4. Lower quadrant anterior abdominal wall subcutaneous fat contusions. No focal hematoma. 5. No other evidence of acute intra-abdominal injury. 6. Additional incidental findings as above. ACT 112: Negative or not required by law. Electronically signed by: Ronan Metz M.D. 09/11/2019 10:53 AM XR chest 1V not portable CLINICAL HISTORY: 84 years-old Female presenting with fall. TECHNIQUE: Portable supine AP view of the chest was obtained. COMPARISON: None. FINDINGS: Cardiomediastinal silhouette normal. No focal opacity. No large effusion or pneumothorax. Degenerative changes of the thoracic spine. Osteopenia suspected. Elevation of the humeral head suggests chronic rotator cuff tears. Cholecystectomy clips noted. IMPRESSION: 1. No acute cardiopulmonary disease. 2. Suspected chronic rotator cuff tears bilaterally. ACT 112: Negative or not required by law. Electronically signed by: Ronan Metz M.D. 09/11/2019 10:37 AM XR lumbar spine 2-3V CLINICAL HISTORY: 84 years-old Female presenting with fall pain. TECHNIQUE: Frontal and crosstable lateral views of the lumbar spine were obtained. COMPARISON: Correlation made to CT of the abdomen and pelvis performed the same day. FINDINGS: Normal lumbar lordosis. No significant scoliosis. Vertebral bodies maintain normal height and alignment. Intervertebral disc height loss noted to a mild degree at several levels. Vacuum disc phenomenon is also suggested at every level. Multilevel mild to moderate spondylitic spurring. There is also posterior spondylitic spurring suggested at several levels. Osseous neural foraminal narrowing may be present at L4-5 and L5-S1. No compression deformity. Atherosclerotic calcifications. Cholecystectomy clips. Nonobstructive bowel gas pattern. Osteopenia may be present. IMPRESSION: 1. No radiographic evidence of acute osseous injury. 2. Multilevel degenerative changes. 3. Multilevel spinal canal and neural foraminal narrowing may be present. ACT 112: Negative or not required by law. Electronically signed by: Ronan Metz M.D. 09/11/2019 10:36 AM SINGLE VIEW PELVIS; 2 VIEWS RIGHT HIP; 2 VIEWS RIGHT FEMUR CLINICAL HISTORY: Fall with right hip pain. FINDINGS: An AP view of the pelvis, AP and crosstable lateral views the right hip, and AP and crosstable lateral views of the right femur are obtained. No prior studies are available for comparison at the time of dictation. The skeletal structures are osteopenic. There is a minimally distracted fracture of the superior right pubic ring. There is also likely a nondistracted fracture of the right inferior pubic ring. The superior pubic ring fracture approaches the right acetabulum. The remainder of the bony pelvis appears intact. The hips are maintained. There is no radiographic evidence of right femoral fracture. Mild degenerative joint space narrowing is present in both hips. There is degenerative sclerosis of the sacroiliac joints and pubic symphysis. The right knee joint is grossly maintained noting chondrocalcinosis of the medial and lateral compartments. Lumbosacral spondylosis is partially imaged. The overlying soft tissues are normal as visualized. There is advanced atherosclerotic calcification of the femoral arteries. Phlebolith are noted in the pelvis. IMPRESSION: 1. There is a minimally distracted fracture of the right superior pubic ring which approaches the acetabulum. 2. Suspect a nondistracted fracture of the right inferior pubic ring. 3. The hips appear intact. 4. There is no radiographic evidence of right femoral fracture. Electronically signed by: Charles Norwood M.D. 09/11/2019 10:36 AM ECG Data Attestation: I personally reviewed and interpreted this ECG as follows: Indication: + other (Fall, hip pain) Rate (beats per minute): 82 Rhythm: + sinus rhythm ECG ST segments: no ST depression and no ST elevation ECG Findings: + PVCs (frequent PVCs) and + Other (QT-c 481.) Blood Pressure Blood Pressure Findings: Elevated blood pressure Blood Pressure Disposition: further management by hospitalist ANTONIO Kennedy The patient is a pleasant 84-year-old woman who presents emergency department with a mechanical fall after skipping a step in her home falling onto her right side subsequently with right hip pain per HPI. Patient denies any head strike or loss of consciousness. On arrival patient is uncomfortable no acute distress, afebrile stable vital signs. On exam the patient has mild tenderness of the right inguinal and lateral hip region. Range of motion is limited secondary to pain. Distal PMS intact. EKG without overt acute ischemia. Chest x-ray negative for acute process. Plain films of the right hip pelvis and femur demonstrate minimally distracted fracture of the right superior pubic ring adjacent to the acetabulum as well as a non-distracted fracture of the right inferior pubic ring. These findings were further evaluated on CT scan showing fractures of the right superior and inferior pubic rami. There is also a suspected nondisplaced acute fracture of the left anterior rib however the patient is nontender in this region. WBC 13.6, nonspecific. H/H 11.5/35.0 without recent values for comparison. Platelets within normal limits. Chemistry without acidosis. Creatinine 1.4 without prior values for comparison. Magnesium 2.7 and electrolytes otherwise unremarkable. UA without convincing evidence of infection. Case was discussed with Jason Hu [email or web address] S[place] who reviewed the images with Dr. Sol and recommendations are for supportive care, pain control with toe-touch weightbearing. We will not require surgical intervention. Case was discussed with Ash Brown PA-C, who evaluate the patient for admission. Impression & Plan Closed fracture of pubic ramus, Fall (on) (from) other stairs and steps, initial encounter, Dehydration Discharge Plan Visit Data *Final* Discharge Date/Time: 09/11/19 13:14 Chief Complaint: Fall ED Provider: Chepe Kat Discharge Problem: Closed fracture of pubic ramus, Fall (on) (from) other stairs and steps, initial encounter, Dehydration Patient Disposition: Admitted As Inpatient Discharge Instructions Interventions: ED Discharge Assessment Last Done: 09/11/19 13:14 Discharge Problem: Closed fracture of pubic ramus Qualifiers: Encounter type: initial encounter Laterality: right Qualified Code(s): S32.591A - Other specified fracture of right pubis, initial encounter for closed fracture The scribe's documentation has been prepared under my direction and personally reviewed by me in its entirety. I confirm that the note above accurately reflects all work, treatment, procedures, and medical decision making performed by me.
[2019-09-11] MEDS: INSULIN ASPART 100 UNITS/ML 3 ML PEN SC SCH ×2 (18:08→21:06)
[2019-09-11] MEDS: INSULIN DETEMIR FLEXPEN/FLEX TOUCH 100 UNITS/ML 3ML SC SCH (21:05)
[2019-09-11] MEDS: HEPARIN SOD 5,000 UNIT/0.5 ML VIAL SQ SCH (21:07)
[2019-09-11] MEDS: ACETAMINOPHEN 325 MG TAB PO SCH (21:12)
[2019-09-11] MEDS: ATORVASTATIN 40 MG TAB PO SCH (22:00)
[2019-09-11] MEDS: DOCUSATE SODIUM 100 MG CAP PO SCH (22:00)
[2019-09-11] MEDS: FLUTICASONE/VILANTEROL 200/25MCG 14 PUFFS/INHALER INH SCH (22:01)
[2019-09-12] MEDS: ACETAMINOPHEN 325 MG TAB PO SCH (05:23)
[2019-09-12 05:59] LABS: Hematocrit (blood only) 33.3 % (37-47); Hemoglobin 10.6 g/dL (12.0-16.0); Mean Corpuscular Hgb Conc 31.8 g/dL (32-36); Mean Corpuscular Volume 91.2 fL (80-100); Mean Platelet Volume 10.7 fL (7.4-10.4); Platelet Count 185 K/uL (130-400); RDW Coefficient of Variation 14.3 % (11.5-14.5); RDW Standard Deviation 48.3 fL (36.4-46.3); Red Blood Count 3.65 M/uL (4.2-5.4); White Blood Count 9.06 K/uL (4.8-10.8)
[2019-09-12 06:41] LABS: BUN Creatinine Ratio 14.4 (10-20); Calcium 8.8 mg/dl (8.5-10.1); Creatinine Clr Calc Pharmacy 25.2 ml/min; Est GFR (African American) 39.2; Est GFR (Non-African American) 33.8; Magnesium 2.6 mg/dl (1.8-2.4); Potassium 4.4 mmol/L (3.5-5.1)
[2019-09-12 06:43] LABS: Albumin Globulin Ratio 0.9 (0.9-2); Bilirubin,Total 1.2 mg/dl (0.2-1); Globulin 3.5 gm/dl (2.5-4.0); Total Protein 6.5 gm/dl (6.4-8.2)
[2019-09-12] MEDS: FAMOTIDINE 20 MG TAB PO SCH (07:29)
[2019-09-12] MEDS ORDERED: MAGNESIUM OXIDE 400 MG TAB PO SCH (09:00)
[2019-09-12] MEDS ORDERED: FERROUS SULFATE 325 MG TAB PO SCH (09:00)
[2019-09-12] MEDS: TRAMADOL HCL 50 MG TABLET PO PRN ×3 (09:19→17:23)
[2019-09-12] MEDS: MONTELUKAST SODIUM 10 MG TABLET PO SCH (09:20)
[2019-09-12] MEDS: DOCUSATE SODIUM 100 MG CAP PO SCH ×2 (09:20→22:04)
[2019-09-12] MEDS: GABAPENTIN 300 MG CAP PO SCH ×3 (09:20→22:02)
[2019-09-12] MEDS: SENNA 8.6 MG TAB PO SCH (09:21)
[2019-09-12] MEDS: INSULIN ASPART 100 UNITS/ML 3 ML PEN SC SCH ×4 (09:41→22:06)
[2019-09-12] MEDS: INSULIN DETEMIR FLEXPEN/FLEX TOUCH 100 UNITS/ML 3ML SC SCH ×2 (09:42→22:07)
[2019-09-12] MEDS: HEPARIN SOD 5,000 UNIT/0.5 ML VIAL SQ SCH ×2 (09:43→22:05)
[2019-09-12] MEDS: lisinopriL 5 MG TAB PO SCH (10:35)
[2019-09-12] MEDS: AMLODIPINE BESYLATE 5 MG TAB PO SCH (10:36)
[2019-09-12] MEDS: METOPROLOL SUCC 25MG EXT REL TAB PO SCH (10:36)
[2019-09-12] MEDS: ACETAMINOPHEN 500 MG TAB PO SCH ×2 (13:18→22:11)
--- NOTE | 2019-09-12 17:17 | Hospitalist Progress Note ---
Date of Service September 12, 2019 Assessment & Plan (1) Fall: (2) Closed pelvic fracture: non operative per Ortho. Supportive care with scheduled Tylenol and with PRN tramadol. Cont PT/OT and plan for inpatient rehab on discharge. Pt and family prefer [facility]. (3) Rib fracture: possible anterior nondisplaced left 7th rib fracture seen on CT scan. Cont incentive spirometry. (4) Diabetes mellitus, type II: A1c: 7.3 on 06/05/19 -Hold home ozempic -cont basal/bolus insulin while hospitalized with carb coverage. Currently at goal. (5) HTN (hypertension): controlled, continue amlodipine and lisinopril per home regimen (6) History of coronary artery disease: H/O NSTEMI s/p bare metal stent to RCA in 2006, stable, asymptomatic. Cont medical management with metoprolol and atorvastatin (7) CKD (chronic kidney disease), stage III: At baseline, avoid nephrotoxic agents when possible (8) COPD (chronic obstructive pulmonary disease): chronic, stable, cont Breo per home regimen (9) Inflammatory polyarthritis: cont Tylenol, uses Tylenol at home (10) Osteoporosis: Previously taken off methotrexate 11/2018. Started Prolia 08/2019. Follows with Dr Rodríguez (11) DVT prophylaxis: Heparin Full Code Dispo-to rehab once approved. Kristie Bustillo DO [facility] Hospitalist Subjective Right pelvic fracture after a mechanical fall at home. She is doing well although has some increased pain since she was just up and moving with the physical therapist. She otherwise denies any chest pain, SOB or other symptoms at this time. Tolerating PO. Review of Systems Review of Systems: All systems reviewed & are unremarkable except as noted in HPI & below Physical Exam Physical Exam: CONSTITUTIONAL: WNWD, vitals as above, generally well- appearing EYES: normal conjunctivae, no scleral icterus ENT: MMM RESPIRATORY: clear to auscultation bilaterally, no crackles, rales or wheezes, normal respiratory effort CARDIOVASCULAR: regular rate and rhythm, S1 and 2 heard without murmurs, gallops or rubs, no JVD, no peripheral edema, no carotid bruits GASTROINTESTINAL: normal bowel sounds, soft, nontender, nondistended MUSCULOSKELETAL: upper strength intact and 5/5 bilaterally. Lower strength not assessed in light of pelvic instability. SKIN: warm and dry NEUROLOGIC: CN 2-12 grossly intact, normal cognition, lower extremities PSYCHIATRIC: alert cooperative and oriented to person, place and time. Results & Data Vital Signs (Past 12 Hours) Vital Signs Temp Pulse Resp BP BP Pulse Ox Pulse Ox 09/12/19 15:08 36.9 C 75 17 118/60 92 09/12/19 14:16 92 09/12/19 10:35 80 135/57 L 09/12/19 09:25 93 H 129/58 L 09/12/19 08:51 36.9 C 90 14 134/55 L 92 Laboratory Results Short CBC 09/12/19 Range/Units 05:29 WBC 9.06 (4.8-10.8) K/uL Hgb 10.6 L (12.0-16.0) g/dL Hct 33.3 L (37-47) % Plt Count 185 (130-400) K/uL BMP 09/12/19 05:29 Sodium 134 L Potassium 4.4 Chloride 104 Carbon Dioxide 27 BUN 20 H Creatinine 1.42 H Glucose 103 H Calcium 8.8 Liver Function 09/12/19 Range/Units 05:29 Total Bilirubin 1.2 H (0.2-1) mg/dl AST 57 H (15-37) U/L ALT 31 (12-78) U/L Alkaline Phosphatase 57 (45-117) U/L Albumin 3.0 L (3.4-5.0) gm/dl Medications Administered Current Inpatient Medications Acetaminophen (Tylenol) 1,000 mg PO Q8 [facility] Stop: 10/12/19 13:59 Last Admin: 09/12/19 13:18 Dose: 1,000 mg Documented by: Albuterol (Ventolin Hfa) 2 puffs INH Q4H PRN PRN Reason: Shortness Of Breath Or Wheezin Stop: 10/11/19 13:55 Amlodipine Besylate (Norvasc) 2.5 mg PO DAILY [facility] Stop: 10/12/19 08:59 Last Admin: 09/12/19 10:36 Dose: 2.5 mg Documented by: Atorvastatin Calcium (Lipitor) 40 mg PO QPM [facility] Stop: 10/11/19 20:59 Last Admin: 09/11/19 22:00 Dose: 40 mg Documented by: Dextrose (Dextrose 50%) 25 - 50 ml IV UD PRN; Protocol PRN Reason: Hypoglycemia Protocol Stop: 10/11/19 13:55 Docusate Sodium (Colace) 100 mg PO BID [facility] Stop: 10/11/19 20:59 Last Admin: 09/12/19 09:20 Dose: 100 mg Documented by: Famotidine (Pepcid) 20 mg PO DAILY [facility] Stop: 10/12/19 08:59 Last Admin: 09/12/19 07:29 Dose: 20 mg Documented by: Fluticasone/Vilanterol (Breo Ellipta 200/25 Mcg Inh) 1 puffs INH QPM [facility] Stop: 10/11/19 20:59 Last Admin: 09/11/19 22:01 Dose: 1 puffs Documented by: Gabapentin (Neurontin) 300 mg PO BID@0900,1400 [facility] Stop: 10/11/19 14:29 Last Admin: 09/12/19 13:19 Dose: 300 mg Documented by: Gabapentin (Neurontin) 600 mg PO QPM [facility] Stop: 10/11/19 20:59 Last Admin: 09/11/19 21:13 Dose: 600 mg Documented by: Glucagon (Glucagen) 1 mg SQ UD PRN; Protocol PRN Reason: Hypoglycemia Protocol Stop: 10/11/19 13:55 Glucose (Dex4 Glucose) 4 - 8 tabs PO UD PRN; Protocol PRN Reason: Hypoglycemia Protocol Stop: 10/11/19 13:55 Glucose (Glucose 40%) 15 - 30 gm PO UD PRN; Protocol PRN Reason: Hypoglycemia Protocol Stop: 10/11/19 13:55 Heparin Sodium (Porcine) (Heparin Sodium (Porcine)) 5,000 units SQ Q12 [facility] Stop: 10/11/19 20:59 Last Admin: 09/12/19 09:43 Dose: 5,000 units Documented by: Insulin Aspart (Novolog Flexpen) 0 units SC ACHS [facility] Stop: 10/11/19 16:29 Last Admin: 09/12/19 13:39 Dose: 1 units Documented by: Insulin Detemir (Levemir Flextouch) 0 units SC BID [facility]; Protocol Stop: 10/11/19 20:59 Last Admin: 09/12/19 09:42 Dose: 5 units Documented by: Lisinopril (Zestril) 5 mg PO DAILY [facility] Stop: 10/12/19 08:59 Last Admin: 09/12/19 10:35 Dose: 5 mg Documented by: Metoprolol Succinate (Toprol Xl) 12.5 mg PO DAILY [facility] Stop: 10/11/19 12:02 Last Admin: 09/12/19 10:36 Dose: 12.5 mg Documented by: Miscellaneous (Carbohydrates For Hypoglycemia) 15 - 30 gm PO UD PRN PRN Reason: Hypoglycemia Protocol Stop: 10/11/19 13:55 Montelukast Sodium (Singulair) 10 mg PO DAILY [facility] Stop: 10/12/19 08:59 Last Admin: 09/12/19 09:20 Dose: 10 mg Documented by: Morphine Sulfate (Morphine Sulfate) 2 mg IV Q8H PRN PRN Reason: Severe Pain Stop: 09/25/19 13:55 Ondansetron HCl (Zofran) 4 mg IV Q6H PRN PRN Reason: Nausea Stop: 10/11/19 13:55 Oxycodone HCl (Roxicodone Immediate Rel) 5 mg PO Q6H PRN PRN Reason: Moderate Pain Stop: 09/25/19 13:55 Last Admin: 09/11/19 21:09 Dose: 5 mg Documented by: Polyethylene Glycol (Miralax Powder Packet) 17 gm PO DAILY PRN PRN Reason: Constipation Stop: 10/11/19 13:55 Sennosides (Senokot) 8.6 mg PO QAM [facility] Stop: 10/11/19 14:29 Last Admin: 09/12/19 09:21 Dose: 8.6 mg Documented by: Tramadol HCl (Ultram) 50 mg PO Q4H PRN PRN Reason: moderate to severe pain Stop: 10/12/19 08:21 Last Admin: 09/12/19 13:20 Dose: 50 mg Documented by:
[2019-09-12] MEDS: FLUTICASONE/VILANTEROL 200/25MCG 14 PUFFS/INHALER INH SCH (22:02)
[2019-09-12] MEDS: ATORVASTATIN 40 MG TAB PO SCH (22:03)
[2019-09-13] MEDS: ACETAMINOPHEN 500 MG TAB PO SCH ×3 (05:26→21:18)
[2019-09-13] MEDS: TRAMADOL HCL 50 MG TABLET PO PRN (09:10)
[2019-09-13] MEDS: DOCUSATE SODIUM 100 MG CAP PO SCH ×2 (09:11→21:09)
[2019-09-13] MEDS: SENNA 8.6 MG TAB PO SCH (09:12)
[2019-09-13] MEDS: MONTELUKAST SODIUM 10 MG TABLET PO SCH (09:12)
[2019-09-13] MEDS: GABAPENTIN 300 MG CAP PO SCH ×3 (09:12→21:08)
[2019-09-13] MEDS: FAMOTIDINE 20 MG TAB PO SCH (09:13)
[2019-09-13] MEDS: AMLODIPINE BESYLATE 5 MG TAB PO SCH (09:13)
[2019-09-13] MEDS: lisinopriL 5 MG TAB PO SCH (09:14)
[2019-09-13] MEDS: METOPROLOL SUCC 25MG EXT REL TAB PO SCH (09:14)
[2019-09-13] MEDS: HEPARIN SOD 5,000 UNIT/0.5 ML VIAL SQ SCH ×2 (09:16→21:10)
[2019-09-13] MEDS: INSULIN DETEMIR FLEXPEN/FLEX TOUCH 100 UNITS/ML 3ML SC SCH ×2 (09:18→21:12)
[2019-09-13] MEDS: INSULIN ASPART 100 UNITS/ML 3 ML PEN SC SCH ×4 (09:20→21:12)
[2019-09-13] MEDS ORDERED: TRAMADOL HCL 50 MG TABLET PO STA (11:41)
--- NOTE | 2019-09-13 17:32 | Hospitalist Progress Note ---
Date of Service September 13, 2019 Assessment & Plan (1) Fall: (2) Closed pelvic fracture: non operative per Ortho. Supportive care with scheduled Tylenol and will also schedule some tramadol. Cont PT/OT and plan for inpatient rehab on discharge. Pt and family prefer [facility]. (3) Rib fracture: possible anterior nondisplaced left 7th rib fracture seen on CT scan. Cont incentive spirometry. (4) Diabetes mellitus, type II: A1c: 7.3 on 06/05/19 -Hold home ozempic -cont basal/bolus insulin while hospitalized with carb coverage. Currently at goal. (5) HTN (hypertension): controlled, continue amlodipine and lisinopril per home regimen (6) History of coronary artery disease: H/O NSTEMI s/p bare metal stent to RCA in 2006, stable, asymptomatic. Cont medical management with metoprolol and atorvastatin (7) CKD (chronic kidney disease), stage III: At baseline, avoid nephrotoxic agents when possible (8) COPD (chronic obstructive pulmonary disease): chronic, stable, cont Breo per home regimen (9) Inflammatory polyarthritis: cont Tylenol, uses Tylenol at home (10) Osteoporosis: Previously taken off methotrexate 11/2018. Started Prolia 08/2019. Follows with Dr Rodríguez (11) DVT prophylaxis: Heparin Full Code Dispo-to rehab once approved. Kristie Bustillo DO [facility] Hospitalist Subjective Pt still reports significant pain, made worse with sitting in the bedside chair. She states the tramadol is working but when she moves around the pain gets worse for a while. She is otherwise denying CP, SOB or other issues at this time. Piper catheter remains in tact for her comfort. Family at bedside and wanted to discuss SNF/rehab wt CM. Review of Systems Review of Systems: All systems reviewed & are unremarkable except as noted in HPI & below Physical Exam Physical Exam: CONSTITUTIONAL: WNWD, vitals as above, generally well- appearing EYES: normal conjunctivae, no scleral icterus ENT: MMM RESPIRATORY: clear to auscultation bilaterally, no crackles, rales or wheezes, normal respiratory effort CARDIOVASCULAR: regular rate and rhythm, S1 and 2 heard without murmurs, gallops or rubs, no JVD, no peripheral edema GASTROINTESTINAL: soft, nontender, nondistended MUSCULOSKELETAL: upper strength intact and 5/5 bilaterally. Lower strength not assessed in light of pelvic instability. SKIN: warm and dry NEUROLOGIC: CN 2-12 grossly intact, normal cognition, lower extremities PSYCHIATRIC: alert cooperative and oriented to person, place and time. Results & Data Vital Signs (Past 12 Hours) Vital Signs Temp Pulse Pulse Resp BP BP Pulse Ox 09/13/19 14:59 36.4 C L 80 16 120/79 93 09/13/19 09:10 56 L 118/55 L 09/13/19 07:12 36.1 C L 72 18 116/65 95 Medications Administered Current Inpatient Medications Acetaminophen (Tylenol) 1,000 mg PO Q8 [facility] Stop: 10/12/19 13:59 Last Admin: 09/13/19 13:46 Dose: 1,000 mg Documented by: Albuterol (Ventolin Hfa) 2 puffs INH Q4H PRN PRN Reason: Shortness Of Breath Or Wheezin Stop: 10/11/19 13:55 Amlodipine Besylate (Norvasc) 2.5 mg PO DAILY [facility] Stop: 10/12/19 08:59 Last Admin: 09/13/19 09:13 Dose: 2.5 mg Documented by: Atorvastatin Calcium (Lipitor) 40 mg PO QPM [facility] Stop: 10/11/19 20:59 Last Admin: 09/12/19 22:03 Dose: 40 mg Documented by: Dextrose (Dextrose 50%) 25 - 50 ml IV UD PRN; Protocol PRN Reason: Hypoglycemia Protocol Stop: 10/11/19 13:55 Docusate Sodium (Colace) 100 mg PO BID [facility] Stop: 10/11/19 20:59 Last Admin: 09/13/19 09:11 Dose: 100 mg Documented by: Famotidine (Pepcid) 20 mg PO DAILY [facility] Stop: 10/12/19 08:59 Last Admin: 09/13/19 09:13 Dose: 20 mg Documented by: Fluticasone/Vilanterol (Breo Ellipta 200/25 Mcg Inh) 1 puffs INH QPM [facility] Stop: 10/11/19 20:59 Last Admin: 09/12/19 22:02 Dose: 1 puffs Documented by: Gabapentin (Neurontin) 300 mg PO BID@0900,1400 [facility] Stop: 10/11/19 14:29 Last Admin: 09/13/19 13:45 Dose: 300 mg Documented by: Gabapentin (Neurontin) 600 mg PO QPM [facility] Stop: 10/11/19 20:59 Last Admin: 09/12/19 22:02 Dose: 600 mg Documented by: Glucagon (Glucagen) 1 mg SQ UD PRN; Protocol PRN Reason: Hypoglycemia Protocol Stop: 10/11/19 13:55 Glucose (Dex4 Glucose) 4 - 8 tabs PO UD PRN; Protocol PRN Reason: Hypoglycemia Protocol Stop: 10/11/19 13:55 Glucose (Glucose 40%) 15 - 30 gm PO UD PRN; Protocol PRN Reason: Hypoglycemia Protocol Stop: 10/11/19 13:55 Heparin Sodium (Porcine) (Heparin Sodium (Porcine)) 5,000 units SQ Q12 [facility] Stop: 10/11/19 20:59 Last Admin: 09/13/19 09:16 Dose: 5,000 units Documented by: Insulin Aspart (Novolog Flexpen) 0 units SC ACHS [facility] Stop: 10/11/19 16:29 Last Admin: 09/13/19 13:02 Dose: 2 units Documented by: Insulin Detemir (Levemir Flextouch) 0 units SC BID [facility]; Protocol Stop: 10/11/19 20:59 Last Admin: 09/13/19 09:18 Dose: 5 units Documented by: Lisinopril (Zestril) 5 mg PO DAILY [facility] Stop: 10/12/19 08:59 Last Admin: 09/13/19 09:14 Dose: 5 mg Documented by: Metoprolol Succinate (Toprol Xl) 12.5 mg PO DAILY [facility] Stop: 10/11/19 12:02 Last Admin: 09/13/19 09:14 Dose: Not Given Documented by: Miscellaneous (Carbohydrates For Hypoglycemia) 15 - 30 gm PO UD PRN PRN Reason: Hypoglycemia Protocol Stop: 10/11/19 13:55 Montelukast Sodium (Singulair) 10 mg PO DAILY [facility] Stop: 10/12/19 08:59 Last Admin: 09/13/19 09:12 Dose: 10 mg Documented by: Morphine Sulfate (Morphine Sulfate) 2 mg IV Q8H PRN PRN Reason: Severe Pain Stop: 09/25/19 13:55 Ondansetron HCl (Zofran) 4 mg IV Q6H PRN PRN Reason: Nausea Stop: 10/11/19 13:55 Oxycodone HCl (Roxicodone Immediate Rel) 5 mg PO Q6H PRN PRN Reason: Moderate Pain Stop: 09/25/19 13:55 Last Admin: 09/11/19 21:09 Dose: 5 mg Documented by: Polyethylene Glycol (Miralax Powder Packet) 17 gm PO DAILY PRN PRN Reason: Constipation Stop: 10/11/19 13:55 Sennosides (Senokot) 8.6 mg PO QAM [facility] Stop: 10/11/19 14:29 Last Admin: 09/13/19 09:12 Dose: 8.6 mg Documented by: Tramadol HCl (Ultram) 50 mg PO Q4H PRN PRN Reason: moderate to severe pain Stop: 10/12/19 08:21 Last Admin: 09/13/19 09:10 Dose: 50 mg Documented by:
[2019-09-13] MEDS ORDERED: TRAMADOL HCL 50 MG TABLET PO PRN (17:38)
[2019-09-13] MEDS: TRAMADOL HCL 50 MG TABLET PO SCH (18:04)
[2019-09-13] MEDS: FLUTICASONE/VILANTEROL 200/25MCG 14 PUFFS/INHALER INH SCH (21:07)
[2019-09-13] MEDS: ATORVASTATIN 40 MG TAB PO SCH (21:09)
[2019-09-14] MEDS: TRAMADOL HCL 50 MG TABLET PO SCH ×2 (03:31→10:07)
[2019-09-14] MEDS: ACETAMINOPHEN 500 MG TAB PO SCH ×3 (05:44→21:32)
[2019-09-14] MEDS: METOPROLOL SUCC 25MG EXT REL TAB PO SCH (09:53)
[2019-09-14] MEDS: INSULIN ASPART 100 UNITS/ML 3 ML PEN SC SCH ×4 (09:55→21:29)
[2019-09-14] MEDS: HEPARIN SOD 5,000 UNIT/0.5 ML VIAL SQ SCH ×2 (09:56→21:29)
[2019-09-14] MEDS: DOCUSATE SODIUM 100 MG CAP PO SCH ×2 (09:56→21:25)
[2019-09-14] MEDS: INSULIN DETEMIR FLEXPEN/FLEX TOUCH 100 UNITS/ML 3ML SC SCH ×2 (09:57→21:29)
[2019-09-14] MEDS: AMLODIPINE BESYLATE 5 MG TAB PO SCH (09:58)
[2019-09-14] MEDS: GABAPENTIN 300 MG CAP PO SCH ×3 (09:58→21:26)
[2019-09-14] MEDS: SENNA 8.6 MG TAB PO SCH (09:59)
[2019-09-14] MEDS: FAMOTIDINE 20 MG TAB PO SCH (09:59)
[2019-09-14] MEDS: MONTELUKAST SODIUM 10 MG TABLET PO SCH (09:59)
[2019-09-14] MEDS: lisinopriL 5 MG TAB PO SCH (10:00)
--- NOTE | 2019-09-14 11:56 | Hospitalist Progress Note ---
Date of Service September 14, 2019 Assessment & Plan (1) Fall: (2) Closed pelvic fracture: non operative per Ortho. Supportive care with scheduled Tylenol and with PRN oxycodone. May need to consider a T[employer] I PARAPROFESSIONAL. Cont PT/OT and plan for inpatient rehab on discharge. Pt and family prefer [facility]. (3) Rib fracture: possible anterior nondisplaced left 7th rib fracture seen on CT scan. Cont incentive spirometry. (4) Diabetes mellitus, type II: A1c: 7.3 on 06/05/19 -Hold home ozempic -cont basal/bolus insulin while hospitalized with carb coverage. Currently at goal. (5) HTN (hypertension): controlled, continue amlodipine and lisinopril per home regimen (6) History of coronary artery disease: H/O NSTEMI s/p bare metal stent to RCA in 2006, stable, asymptomatic. Cont medical management with metoprolol and atorvastatin (7) CKD (chronic kidney disease), stage III: At baseline, avoid nephrotoxic agents when possible (8) COPD (chronic obstructive pulmonary disease): chronic, stable, cont Breo per home regimen (9) Inflammatory polyarthritis: cont Tylenol, uses Tylenol at home (10) Osteoporosis: Continue Prolia per rheumatology (11) DVT prophylaxis: Heparin Full Code Dispo-to rehab once approved. Kristie Bustillo DO [facility] Hospitalist Subjective Patient is still having a lot of pain today. We decided to try her on oxycodone. Continue scheduled Tylenol. She is otherwise tolerating p.o. She recently had a bath this morning which provoked some of the pain. Review of Systems Review of Systems: All systems reviewed & are unremarkable except as noted in HPI & below Physical Exam Physical Exam: CONSTITUTIONAL: WNWD, vitals as above, generally well- appearing, moderate distress 2/2 pain EYES: normal conjunctivae, no scleral icterus ENT: MMM RESPIRATORY: clear to auscultation bilaterally, no crackles, rales or wheezes, normal respiratory effort CARDIOVASCULAR: regular rate and rhythm, S1 and 2 heard without murmurs, gallops or rubs, no JVD, no peripheral edema GASTROINTESTINAL: soft, nontender, nondistended MUSCULOSKELETAL: upper strength intact and 5/5 bilaterally. Lower strength not assessed in light of pelvic instability. SKIN: warm and dry NEUROLOGIC: CN 2-12 grossly intact, normal cognition, lower extremities PSYCHIATRIC: alert cooperative and oriented to person, place and time. Results & Data Vital Signs (Past 12 Hours) Vital Signs Temp Pulse Resp BP Pulse Ox 09/14/19 09:51 39 L 123/63 09/14/19 07:28 36.9 C 42 L 14 138/55 L 94 Medications Administered Current Inpatient Medications Acetaminophen (Tylenol) 1,000 mg PO Q8 [facility] Stop: 10/12/19 13:59 Last Admin: 09/14/19 05:44 Dose: 1,000 mg Documented by: Albuterol (Ventolin Hfa) 2 puffs INH Q4H PRN PRN Reason: Shortness Of Breath Or Wheezin Stop: 10/11/19 13:55 Amlodipine Besylate (Norvasc) 2.5 mg PO DAILY [facility] Stop: 10/12/19 08:59 Last Admin: 09/14/19 09:58 Dose: 2.5 mg Documented by: Atorvastatin Calcium (Lipitor) 40 mg PO QPM [facility] Stop: 10/11/19 20:59 Last Admin: 09/13/19 21:09 Dose: 40 mg Documented by: Dextrose (Dextrose 50%) 25 - 50 ml IV UD PRN; Protocol PRN Reason: Hypoglycemia Protocol Stop: 10/11/19 13:55 Docusate Sodium (Colace) 100 mg PO BID [facility] Stop: 10/11/19 20:59 Last Admin: 09/14/19 09:56 Dose: 100 mg Documented by: Famotidine (Pepcid) 20 mg PO DAILY [facility] Stop: 10/12/19 08:59 Last Admin: 09/14/19 09:59 Dose: 20 mg Documented by: Fluticasone/Vilanterol (Breo Ellipta 200/25 Mcg Inh) 1 puffs INH QPM [facility] Stop: 10/11/19 20:59 Last Admin: 09/13/19 21:07 Dose: 1 puffs Documented by: Gabapentin (Neurontin) 300 mg PO BID@0900,1400 [facility] Stop: 10/11/19 14:29 Last Admin: 09/14/19 09:58 Dose: 300 mg Documented by: Gabapentin (Neurontin) 600 mg PO QPM [facility] Stop: 10/11/19 20:59 Last Admin: 09/13/19 21:08 Dose: 600 mg Documented by: Glucagon (Glucagen) 1 mg SQ UD PRN; Protocol PRN Reason: Hypoglycemia Protocol Stop: 10/11/19 13:55 Glucose (Dex4 Glucose) 4 - 8 tabs PO UD PRN; Protocol PRN Reason: Hypoglycemia Protocol Stop: 10/11/19 13:55 Glucose (Glucose 40%) 15 - 30 gm PO UD PRN; Protocol PRN Reason: Hypoglycemia Protocol Stop: 10/11/19 13:55 Heparin Sodium (Porcine) (Heparin Sodium (Porcine)) 5,000 units SQ Q12 [facility] Stop: 10/11/19 20:59 Last Admin: 09/14/19 09:56 Dose: 5,000 units Documented by: Insulin Aspart (Novolog Flexpen) 0 units SC ACHS [facility] Stop: 10/11/19 16:29 Last Admin: 09/14/19 09:55 Dose: 1 units Documented by: Insulin Detemir (Levemir Flextouch) 0 units SC BID [facility]; Protocol Stop: 10/11/19 20:59 Last Admin: 09/14/19 09:57 Dose: 5 units Documented by: Lisinopril (Zestril) 5 mg PO DAILY [facility] Stop: 10/12/19 08:59 Last Admin: 09/14/19 10:00 Dose: 5 mg Documented by: Metoprolol Succinate (Toprol Xl) 12.5 mg PO DAILY [facility] Stop: 10/11/19 12:02 Last Admin: 09/14/19 09:53 Dose: Not Given Documented by: Miscellaneous (Carbohydrates For Hypoglycemia) 15 - 30 gm PO UD PRN PRN Reason: Hypoglycemia Protocol Stop: 10/11/19 13:55 Montelukast Sodium (Singulair) 10 mg PO DAILY [facility] Stop: 10/12/19 08:59 Last Admin: 09/14/19 09:59 Dose: 10 mg Documented by: Morphine Sulfate (Morphine Sulfate) 2 mg IV Q8H PRN PRN Reason: Severe Pain Stop: 09/25/19 13:55 Ondansetron HCl (Zofran) 4 mg IV Q6H PRN PRN Reason: Nausea Stop: 10/11/19 13:55 Oxycodone HCl (Roxicodone Immediate Rel) 5 mg PO Q6H PRN PRN Reason: Moderate Pain Stop: 09/25/19 13:55 Last Admin: 01/15/20 21:09 Dose: 5 mg Documented by: Polyethylene Glycol (Miralax Powder Packet) 17 gm PO DAILY PRN PRN Reason: Constipation Stop: 10/11/19 13:55 Sennosides (Senokot) 8.6 mg PO QAM [facility] Stop: 10/11/19 14:29 Last Admin: 09/14/19 09:59 Dose: 8.6 mg Documented by: Tramadol HCl (Ultram) 50 mg PO Q6H PRN PRN Reason: moderate to severe pain Stop: 10/12/19 08:21 Tramadol HCl (Ultram) 50 mg PO Q8H [facility] Stop: 10/13/19 17:59 Last Admin: 09/14/19 10:07 Dose: 50 mg Documented by:
[2019-09-14] MEDS ORDERED: OXYCODONE HCL IR 5 MG TAB (IMMEDIATE RELEASE) PO STA (12:07)
[2019-09-14] MEDS: OXYCODONE HCL IR 5 MG TAB (IMMEDIATE RELEASE) PO PRN (19:49)
[2019-09-14] MEDS: FLUTICASONE/VILANTEROL 200/25MCG 14 PUFFS/INHALER INH SCH (21:24)
[2019-09-14] MEDS: ATORVASTATIN 40 MG TAB PO SCH (21:25)
[2019-09-15] MEDS: OXYCODONE HCL IR 5 MG TAB (IMMEDIATE RELEASE) PO PRN ×3 (01:43→21:45)
[2019-09-15] MEDS: ACETAMINOPHEN 500 MG TAB PO SCH ×3 (05:07→21:45)
[2019-09-15 06:22] LABS: Hematocrit (blood only) 32.6 % (37-47); Hemoglobin 10.6 g/dL (12.0-16.0); Mean Corpuscular Hemoglobin 29.4 pg (25-34); Mean Corpuscular Hgb Conc 32.5 g/dL (32-36); Mean Corpuscular Volume 90.3 fL (80-100); Mean Platelet Volume 10.7 fL (7.4-10.4); Platelet Count 209 K/uL (130-400); RDW Coefficient of Variation 14.2 % (11.5-14.5); RDW Standard Deviation 47.1 fL (36.4-46.3); Red Blood Count 3.61 M/uL (4.2-5.4); White Blood Count 9.11 K/uL (4.8-10.8)
[2019-09-15 06:50] LABS: BUN Creatinine Ratio 14.8 (10-20); Calcium 8.3 mg/dl (8.5-10.1); Creatinine Clr Calc Pharmacy 30.1 ml/min; Est GFR (African American) 48.5; Est GFR (Non-African American) 41.9; Potassium 4.4 mmol/L (3.5-5.1)
[2019-09-15] MEDS: INSULIN DETEMIR FLEXPEN/FLEX TOUCH 100 UNITS/ML 3ML SC SCH ×2 (09:30→21:46)
[2019-09-15] MEDS: INSULIN ASPART 100 UNITS/ML 3 ML PEN SC SCH ×4 (09:30→21:47)
[2019-09-15] MEDS: HEPARIN SOD 5,000 UNIT/0.5 ML VIAL SQ SCH ×2 (09:31→21:47)
[2019-09-15] MEDS: DOCUSATE SODIUM 100 MG CAP PO SCH ×2 (09:33→21:48)
[2019-09-15] MEDS: GABAPENTIN 300 MG CAP PO SCH ×3 (09:34→21:48)
[2019-09-15] MEDS: AMLODIPINE BESYLATE 5 MG TAB PO SCH (09:35)
[2019-09-15] MEDS: FAMOTIDINE 20 MG TAB PO SCH (09:36)
[2019-09-15] MEDS: SENNA 8.6 MG TAB PO SCH (09:37)
[2019-09-15] MEDS: MONTELUKAST SODIUM 10 MG TABLET PO SCH (09:37)
[2019-09-15] MEDS: METOPROLOL SUCC 25MG EXT REL TAB PO SCH (09:38)
[2019-09-15] MEDS: lisinopriL 5 MG TAB PO SCH (09:39)
--- NOTE | 2019-09-15 12:07 | Hospitalist Progress Note ---
Date of Service September 15, 2019 Assessment & Plan (1) Fall: (2) Closed pelvic fracture: non operative per Ortho. Supportive care with scheduled Tylenol and with PRN oxycodone. Cont PT/OT and plan for inpatient rehab on discharge. Pt and family prefer [facility]. (3) Rib fracture: possible anterior nondisplaced left 7th rib fracture seen on CT scan. Cont incentive spirometry. Supportive care. (4) Diabetes mellitus, type II: A1c: 7.3 on 06/05/19 -Hold home ozempic -cont basal/bolus insulin while hospitalized with carb coverage. Currently at goal. (5) HTN (hypertension): controlled, continue amlodipine and lisinopril per home regimen (6) History of coronary artery disease: H/O NSTEMI s/p bare metal stent to RCA in 2006, stable, asymptomatic. Cont medical management with metoprolol and atorvastatin (7) CKD (chronic kidney disease), stage III: At baseline, avoid nephrotoxic agents when possible (8) COPD (chronic obstructive pulmonary disease): chronic, stable, cont Breo per home regimen (9) Inflammatory polyarthritis: cont Tylenol, uses Tylenol at home (10) Osteoporosis: Continue Prolia per rheumatology (11) DVT prophylaxis: Heparin Full Code Dispo-to rehab once approved. Kristie Bustillo DO [facility] Hospitalist Subjective Doing well, pain controlled more effectively with oxycodone. Still is reporting some significant breakthrough pain. Otherwise tolerating p.o. and indeed denies any other symptoms at this time. Review of Systems Review of Systems: All systems reviewed & are unremarkable except as noted in HPI & below Physical Exam Physical Exam: CONSTITUTIONAL: WNWD, vitals as above, generally well- appearing, moderate distress 2/2 pain EYES: normal conjunctivae, no scleral icterus ENT: MMM RESPIRATORY: clear to auscultation bilaterally, no crackles, rales or wheezes, normal respiratory effort CARDIOVASCULAR: regular rate and rhythm, S1 and 2 heard without murmurs, gallops or rubs, no JVD, no peripheral edema GASTROINTESTINAL: soft, nontender, nondistended MUSCULOSKELETAL: upper strength intact and 5/5 bilaterally. Lower strength not assessed in light of pelvic instability. SKIN: warm and dry NEUROLOGIC: CN 2-12 grossly intact, normal cognition, lower extremities PSYCHIATRIC: alert cooperative and oriented to person, place and time. Results & Data Vital Signs (Past 12 Hours) Vital Signs Temp Pulse Resp BP Pulse Ox 09/15/19 07:52 36.7 C 67 16 131/57 L 95 Laboratory Results Short CBC 09/15/19 Range/Units 05:37 WBC 9.11 (4.8-10.8) K/uL Hgb 10.6 L (12.0-16.0) g/dL Hct 32.6 L (37-47) % Plt Count 209 (130-400) K/uL BMP 09/15/19 05:37 Sodium 132 L Potassium 4.4 Chloride 100 Carbon Dioxide 27 BUN 18 Creatinine 1.19 Glucose 85 Calcium 8.3 L Medications Administered Current Inpatient Medications Acetaminophen (Tylenol) 1,000 mg PO Q8 KEYANA Stop: 10/12/19 13:59 Last Admin: 09/15/19 05:07 Dose: 1,000 mg Documented by: Albuterol (Ventolin Hfa) 2 puffs INH Q4H PRN PRN Reason: Shortness Of Breath Or Wheezin Stop: 10/11/19 13:55 Amlodipine Besylate (Norvasc) 2.5 mg PO DAILY KEYANA Stop: 10/12/19 08:59 Last Admin: 09/15/19 09:35 Dose: 2.5 mg Documented by: Atorvastatin Calcium (Lipitor) 40 mg PO QPM KEYANA Stop: 10/11/19 20:59 Last Admin: 09/14/19 21:25 Dose: 40 mg Documented by: Dextrose (Dextrose 50%) 25 - 50 ml IV UD PRN; Protocol PRN Reason: Hypoglycemia Protocol Stop: 10/11/19 13:55 Docusate Sodium (Colace) 100 mg PO BID KEYANA Stop: 10/11/19 20:59 Last Admin: 09/15/19 09:33 Dose: 100 mg Documented by: Famotidine (Pepcid) 20 mg PO DAILY KEYANA Stop: 10/12/19 08:59 Last Admin: 09/15/19 09:36 Dose: 20 mg Documented by: Fluticasone/Vilanterol (Breo Ellipta 200/25 Mcg Inh) 1 puffs INH QPM KEYANA Stop: 10/11/19 20:59 Last Admin: 09/14/19 21:24 Dose: 1 puffs Documented by: Gabapentin (Neurontin) 300 mg PO BID@0900,1400 KEYANA Stop: 10/11/19 14:29 Last Admin: 09/15/19 09:34 Dose: 300 mg Documented by: Gabapentin (Neurontin) 600 mg PO QPM COUNT INCLUDES THE [facility] Stop: 10/11/19 20:59 Last Admin: 09/14/19 21:26 Dose: 600 mg Documented by: Glucagon (Glucagen) 1 mg SQ UD PRN; Protocol PRN Reason: Hypoglycemia Protocol Stop: 10/11/19 13:55 Glucose (Dex4 Glucose) 4 - 8 tabs PO UD PRN; Protocol PRN Reason: Hypoglycemia Protocol Stop: 10/11/19 13:55 Glucose (Glucose 40%) 15 - 30 gm PO UD PRN; Protocol PRN Reason: Hypoglycemia Protocol Stop: 10/11/19 13:55 Heparin Sodium (Porcine) (Heparin Sodium (Porcine)) 5,000 units SQ Q12 COUNT INCLUDES THE [facility] Stop: 10/11/19 20:59 Last Admin: 09/15/19 09:31 Dose: 5,000 units Documented by: Insulin Aspart (Novolog Flexpen) 0 units SC ACHS COUNT INCLUDES THE [facility] Stop: 10/11/19 16:29 Last Admin: 09/15/19 09:30 Dose: 2 units Documented by: Insulin Detemir (Levemir Flextouch) 0 units SC BID COUNT INCLUDES THE [facility]; Protocol Stop: 10/11/19 20:59 Last Admin: 09/15/19 09:30 Dose: Not Given Documented by: Lisinopril (Zestril) 5 mg PO DAILY COUNT INCLUDES THE [facility] Stop: 10/12/19 08:59 Last Admin: 09/15/19 09:39 Dose: 5 mg Documented by: Metoprolol Succinate (Toprol Xl) 12.5 mg PO DAILY COUNT INCLUDES THE [facility] Stop: 10/11/19 12:02 Last Admin: 09/15/19 09:38 Dose: 12.5 mg Documented by: Miscellaneous (Carbohydrates For Hypoglycemia) 15 - 30 gm PO UD PRN PRN Reason: Hypoglycemia Protocol Stop: 10/11/19 13:55 Montelukast Sodium (Singulair) 10 mg PO DAILY COUNT INCLUDES THE [facility] Stop: 10/12/19 08:59 Last Admin: 09/15/19 09:37 Dose: 10 mg Documented by: Morphine Sulfate (Morphine Sulfate) 2 mg IV Q8H PRN PRN Reason: Severe Pain Stop: 09/25/19 13:55 Ondansetron HCl (Zofran) 4 mg IV Q6H PRN PRN Reason: Nausea Stop: 10/11/19 13:55 Oxycodone HCl (Roxicodone Immediate Rel) 5 - 10 mg PO Q6H PRN PRN Reason: Moderate Pain Stop: 09/25/19 13:55 Polyethylene Glycol (Miralax Powder Packet) 17 gm PO DAILY PRN PRN Reason: Constipation Stop: 10/11/19 13:55 Polyethylene Glycol (Miralax Powder Packet) 17 gm PO DAILY KEYANA Stop: 10/15/19 10:59 Sennosides (Senokot) 8.6 mg PO QAM COUNT INCLUDES THE [facility] Stop: 10/11/19 14:29 Last Admin: 09/15/19 09:37 Dose: 8.6 mg Documented by:
[2019-09-15] MEDS: POLYETHYLENE (MIRALAX) 17 GM PACK PO SCH (15:20)
[2019-09-15] MEDS: FLUTICASONE/VILANTEROL 200/25MCG 14 PUFFS/INHALER INH SCH (21:48)
[2019-09-15] MEDS: ATORVASTATIN 40 MG TAB PO SCH (21:48)
[2019-09-16] MEDS: OXYCODONE HCL IR 5 MG TAB (IMMEDIATE RELEASE) PO PRN (03:56)
[2019-09-16] MEDS: ACETAMINOPHEN 500 MG TAB PO SCH ×2 (05:17→15:15)
[2019-09-16] MEDS: INSULIN ASPART 100 UNITS/ML 3 ML PEN SC SCH ×2 (09:03→13:01)
[2019-09-16] MEDS: DOCUSATE SODIUM 100 MG CAP PO SCH (09:04)
[2019-09-16] MEDS: HEPARIN SOD 5,000 UNIT/0.5 ML VIAL SQ SCH (09:04)
[2019-09-16] MEDS: POLYETHYLENE (MIRALAX) 17 GM PACK PO SCH (09:05)
[2019-09-16] MEDS: INSULIN DETEMIR FLEXPEN/FLEX TOUCH 100 UNITS/ML 3ML SC SCH (09:05)
[2019-09-16] MEDS: AMLODIPINE BESYLATE 5 MG TAB PO SCH (09:06)
[2019-09-16] MEDS: FAMOTIDINE 20 MG TAB PO SCH (09:06)
[2019-09-16] MEDS: SENNA 8.6 MG TAB PO SCH (09:06)
[2019-09-16] MEDS: GABAPENTIN 300 MG CAP PO SCH ×2 (09:06→13:03)
[2019-09-16] MEDS: MONTELUKAST SODIUM 10 MG TABLET PO SCH (09:07)
[2019-09-16] MEDS: METOPROLOL SUCC 25MG EXT REL TAB PO SCH (09:07)
[2019-09-16] MEDS: lisinopriL 5 MG TAB PO SCH (09:07)
[2019-09-16] MEDS ORDERED: POLYETHYLENE (MIRALAX) 17 GM PACK PO SCH (12:00)
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
== END 2019-09-16 16:18 | DRG 536 ==
LOC: ED 08:40 → 3W 12:03 → SUATTDRO 12:03 → 3W 13:14